=== PATIENT | female | born 1990 | race African-American/Black ===

== ENCOUNTER 2017-04-11 12:11 | Emergency (ER) | payer SELFPAY ==
[~2017-04-11] VITALS: Ht 167.6 cm; Wt 47.6 kg
[2017-04-11] MEDS ORDERED: ACETAMINOPHEN 325 MG TAB PO ONE ×2 (13:24→13:30)
[2017-04-11] MEDS ORDERED: HYDROcodone-ACET 10/325MG TAB PO ONE (19:00)
[2017-04-11 19:30] VITALS: BP 126/72
== END 2017-04-11 21:58 | disposition home or self-care (01) ==
LOC: EDBD 12:11 → ER 12:11
DX: S56.911A Strain of unspecified muscles, fascia and tendons at forearm level, right arm, initial encounter (principal); R51 Headache; R10.9 Unspecified abdominal pain; F17.210 Nicotine dependence, cigarettes, uncomplicated; F15.10 Other stimulant abuse, uncomplicated; X58.XXXA Exposure to other specified factors, initial encounter; Y93.89 Activity, other specified; Y99.8 Other external cause status; Y92.89 Other specified places as the place of occurrence of the external cause
CPT/HCPCS: 70450; 73090; 74176